=== PATIENT | female | born 2000 | race Caucasian/White ===

== ENCOUNTER 2024-01-21 18:32 | Emergency (ER) | payer SELFPAY ==
[~2024-01-21] VITALS: Ht 185.4 cm; Wt 104.5 kg
[2024-01-21 19:04] LABS: APPEARANCE,URINE HAZY (CLEAR); GLUCOSE, URINE (UA) NEGATIVE (NEGATIVE); KETONES,URINE NEGATIVE (NEGATIVE); LEUKOCYTE ESTERASE ,URINE LARGE (NEGATIVE); NITRATE,URINE POSITIVE (NEGATIVE); OCCULT BLOOD,URINE SMALL (NEGATIVE); PROTEIN,URINE 30-70 mg/dL (NEGATIVE)
[2024-01-21 19:06] LABS: BILIRUBIN,URINE MODERATE (NEGATIVE); COLOR,URINE ORANGE (YELLOW)
[2024-01-21 19:21] LABS: BACTERIA,URINE Moderate /HPF (None Seen); SQUAMOUS EPITHELIAL CELL,UR Moderate /LPF (None Seen); WBC,URINE >100 /HPF (0-5)
[2024-01-21] MEDS: PHENAZOPYRIDINE HCL 100 MG TABLET PO ONE (20:09)
[2024-01-21] MEDS: SODIUM CHLORIDE 0.9% 1,000 ML IV ONE (20:09)
[2024-01-21] MEDS: KETOROLAC TROMETHAMINE 30 MG/ML VIAL IVP ONE (20:10)
[2024-01-21] MEDS: ACETAMINOPHEN 500 MG TABLET PO ONE (20:10)
[2024-01-21] MEDS: ONDANSETRON HCL 4 MG/2 ML VIAL IVP ONE (20:10)
[2024-01-21] MEDS: CefTRIAXone 1 GM/DEXTROSE 50 ML IV ONE (20:13)
[2024-01-21 20:39] LABS: BASOPHILS % (AUTO) 0.2 % (0.0-2.0); EOSINOPHILS % (AUTO) 0.2 % (1.0-6.0); HEMATOCRIT 38.5 % (36-46); HEMOGLOBIN 13.5 g/dL (12.0-16.0); LYMPHOCYTES # (AUTO) 0.7 K/uL (1.0-4.8); LYMPHOCYTES % (AUTO) 7.5 % (22.0-44.0); MEAN CORPUSCULAR HEMOGLOBIN 32.3 pg (26.0-34.0); MEAN CORPUSCULAR HGB CONC 35.1 G/dL (31.0-37.0); MEAN CORPUSCULAR VOLUME 92 fL (80-100); MONOCYTES % (AUTO) 10.5 % (2.0-9.0); NEUTROPHILS # (AUTO) 7.8 K/uL (1.8-7.7); NEUTROPHILS % (AUTO) 81.6 % (40.0-70.0); PLATELET COUNT (AUTO) 185 K/uL (150-450); RED BLOOD CELL COUNT(AUTO) 4.18 MIL/uL (4.00-5.20); RED CELL DISTRIBUTION WIDTH 12.5 % (11.5-14.5); WHITE BLOOD COUNT (AUTO) 9.6 K/uL (4.5-11.0)
[2024-01-21 20:48] LABS: ANION GAP 11 mmol/L (8-16); CALCIUM, TOTAL 8.8 mg/dL (8.8-10.5); CARBON DIOXIDE 23 mmol/L (22-29); CHLORIDE 104 mmol/L (98-107); CREATININE 0.93 mg/dL (0.60-1.30); GLOMERULAR FILTR. RATE CALC > 60 mL/min (>60); GLUCOSE,RANDOM 109 mg/dL (70-110); POTASSIUM 3.3 mmol/L (3.5-5.1); SODIUM SERUM 138 mmol/L (136-145); UREA NITROGEN, BLOOD 9 mg/dL (7-18)
[2024-01-21 21:00] VITALS: BP 121/72; PULSE 81; RESP 18; TEMP 98.7
[2024-01-21] MEDS ORDERED: CEPH-558 PO (21:02)
[2024-01-21] MEDS ORDERED: ACET-2080 PO (21:02)
[2024-01-21] MEDS ORDERED: PHEN-674 PO (21:02)
[2024-01-21] MEDS ORDERED: MICO15CR9 VG (21:02)
[2024-01-21] MEDS ORDERED: IBUP-1554 PO (21:02)
== END 2024-01-21 22:02 | disposition home or self-care (01) ==
LOC: EMS 18:33
DX: N12 Tubulo-interstitial nephritis, not specified as acute or chronic (principal); E03.9 Hypothyroidism, unspecified
CPT/HCPCS: 99284; 96365; 96375; 80048; 81001; 84703; 85025; 36415; 87086; 87186; J0696; J1885; J2405; J7030